=== PATIENT | female | born 1995 | race Asian ===

== ENCOUNTER 2025-10-13 05:30 | Inpatient (IN) | payer MEDICAID, SELFPAY ==
[2025-10-13] MEDS ORDERED: Carboprost 250 MCG/ML AMP IM PRN (06:54)
[2025-10-13] MEDS ORDERED: Tranexamic Acid 1,000 MG/10 ML VIAL IVP PRN (06:54)
[2025-10-13] MEDS ORDERED: Lidocaine 1% (PF) 30 ML VIAL SC PRN (06:54)
[2025-10-13] MEDS ORDERED: Diphenoxylate HCl/Atropine Tablet PO PRN (06:54)
[2025-10-13] MEDS ORDERED: Ondansetron PF 4 MG/2 ML Vial IVP PRN ×2 (06:54→18:29)
[2025-10-13] MEDS ORDERED: hydrALAZINE 20 MG/ML VIAL SLOW IVP PRN ×2 (06:54→18:29)
[2025-10-13] MEDS ORDERED: Methylergonovine 0.2 MG/ML VIAL IM PRN ×2 (06:54→18:29)
[2025-10-13] MEDS ORDERED: Oxytocin 30 units/NS 500 ML 500 ML IV SCH ×2 (07:00→18:29)
[2025-10-13] MEDS ORDERED: Penicillin G Potassium 5 MILL.UNITS in Sodium Chloride 0.9% 100 ML IVPB SCH (07:00)
[2025-10-13] MEDS: Oxytocin 30 units/NS 500 ML 500 ML IV SCH (07:30)
[2025-10-13 07:40] VITALS: BMI 20.7
[2025-10-13 08:08] LABS: Hematocrit 32.0 % (34.9-44.5); Hemoglobin 11.0 g/dL (12.0-15.5); Mean Corpuscular Hemoglobin 29.6 pg (27.0-33.0); Mean Corpuscular Volume 86.3 fL (81.6-98.3); Platelet Count 232 10x3/uL (150-450); Red Blood Cell (RBC) Count 3.71 10x6/uL (3.90-5.03); White Blood Cell (WBC) Count 10.49 10x3/uL (3.5-10.5)
[2025-10-13 08:35] LABS: ALT (SGPT) 334 U/L (Less than 34); AST (SGOT) 309 U/L (11-34); Albumin 2.8 g/dL (3.1-4.5); Alkaline Phosphatase 275 U/L (40-110); Anion Gap 16 mmol/L (10-20); BUN (Urea Nitrogen) 8 mg/dL (7.0-18.7); Bilirubin, Total 0.9 mg/dL (0.3-1.2); Calc. Creatinine Clearance 113 mL/min (70-130); Calcium 9.3 mg/dL (7.8-10.44); Carbon Dioxide 16 mmol/L (22-29); Chloride 107 mmol/L (98-107); Globulin 4.0 g/dL (2.4-3.5); Glucose 129 mg/dL (70-105); Potassium 4.2 mmol/L (3.5-5.1); Sodium 135 mmol/L (136-145)
[2025-10-13 08:50] LABS: Syphilis Antibody Index 0.05 S/CO (<1.00 Non-Reactive)
[2025-10-13 08:51] LABS: Hep B Surf Ag - L&D Non-Reactive S/CO (NonReactive)
[2025-10-13] MEDS ORDERED: Penicillin G 2.5 MILL.units 2.5 MILL.UNITS in Premix 1 BAG IVPB SCH (11:00)
[2025-10-13] MEDS: fentaNYL/Ropivacaine Epidural 100 ML ONE (12:01)
[2025-10-13] MEDS ORDERED: diphenhydrAMINE 50 MG/ML VIAL IVP PRN (12:10)
[2025-10-13] MEDS ORDERED: fentaNYL 2 mcg/Ropivacaine 0.2% Epidural 100 ML CADD EPIDURAL SCH (12:15)
[2025-10-13] MEDS ORDERED: Communication Order-Pharmacy FS SCH (12:15)
[2025-10-13] MEDS: Ibuprofen 800 MG TAB PO PRN (17:02)
[2025-10-13] MEDS ORDERED: Benzocaine-Menthol 82.5 ML CAN TOP PRN (18:29)
[2025-10-13] MEDS ORDERED: Bisacodyl 10 MG SUPP PR PRN (18:29)
[2025-10-13] MEDS ORDERED: Lanolin Ointment 7 GM TUBE TOP PRN (18:29)
[2025-10-13] MEDS ORDERED: diphenhydrAMINE 25 MG CAP PO PRN (18:29)
[2025-10-13] MEDS ORDERED: Preparation H Ointment 28 GM TUBE PR PRN (18:29)
[2025-10-13] MEDS ORDERED: Methylergonovine 0.2 MG TAB PO PRN (18:29)
[2025-10-13] MEDS ORDERED: Milk Of Magnesia 30 ML UDCUP PO PRN (18:29)
[2025-10-13] MEDS: Oxytocin 30 units/NS 500 ML 500 ML ONE (18:33)
[2025-10-13] MEDS: Ondansetron PF 4 MG/2 ML Vial IVP PRN (20:26)
[2025-10-13] MEDS: Ferrous Sulfate 325 MG TAB PO SCH (21:00)
[2025-10-14] MEDS: Ibuprofen 800 MG TAB PO SCH (00:17)
[2025-10-14] MEDS: Acetaminophen 325 MG TAB PO PRN (02:08)
[2025-10-14] MEDS: Ferrous Sulfate 325 MG TAB PO SCH (08:45)
[2025-10-15 10:11] VITALS: BP 128/78; TEMP 99
[2025-10-15] MEDS: diphenhydrAMINE 25 MG CAP PO SCH (14:38)
== END 2025-10-15 17:30 | disposition home or self-care (01) | DRG 806 ==
LOC: CSHLD 06:29 → CSHPP 18:15
PROVIDERS: ADMIT Obstetrics & Gynecology; ATTEND Obstetrics & Gynecology
PROC: 10E0XZZ Delivery of Products of Conception, External Approach (ICD-10-PCS; principal; 2025-10-13)
PROC: 4A1HXCZ Monitoring of Products of Conception, Cardiac Rate, External Approach (ICD-10-PCS; 2025-10-13)
DX: O99.02 Anemia complicating childbirth (principal); O26.643 Intrahepatic cholestasis of pregnancy, third trimester; Z37.0 Single live birth; O69.81X0 Labor and delivery complicated by cord around neck, without compression, not applicable or unspecified; Z3A.36 36 weeks gestation of pregnancy
CPT/HCPCS: 36415; 36416; 51702; 80053; 82239; 85027; 86780; 86850; 86900; 86901; 87340; J2405; J2590; J7120